=== PATIENT | female | born 1985 | race Two or more races ===

== ENCOUNTER 2025-03-26 14:00 | Inpatient (IN) | payer OTHER ==
[~2025-03-26] VITALS: Ht 175.3 cm; Wt 65.8 kg
--- NOTE | 2025-03-26 15:12 | NUR ---
SE RECIBE PTE ALERTA, ORIENTADA X3 Y AMBULANDO. PTE REFIERE A MEDIO ALICIA COMENZAR A SENTIR DEBILIDAD EN [place]. SE REALIZA EKG Y SE PRESENTA A DR. VICTORIA QUIEN INDICA UBICAR EN FT. SE MIDEN S/V Y SE UBICA EN FAST TRACK
--- NOTE | 2025-03-26 17:30 | NUR ---
SE RECIBE PACIENTE REFIERE TENER MALESTAR EN EL AREA DE [place] ES EVALUADA POR QUIEN ORDENA CBC,CMP,D-DIMMER,PT-INR,PTT Y HEAD CT WO CONTRAST.SE REALIZA MUESTRAS Y ESTUDIOS.SE OBSERVA PACIENTE POR CAMBIOS.
[2025-03-26 17:46] LABS: EOS # 0.33 (0.04-0.54); EOS % 5.3 % (0.7-7.0); HEMATOCRIT 37.4 % (34.1-44.9); HEMOGLOBIN 12.6 g/dL (11.2-15.7); LYMPH # 2.08 (1.18-3.74); LYMPH % 33.1 % (19.3-53.1); MEAN CORPUSCULAR HEMOGLOBIN 30.9 pg (25.6-32.2); MONO # 0.49 (0.24-0.82); MONO % 7.8 % (4.7-12.5); NEUT # 3.31 (1.56-6.13); NEUT % 52.6 % (34.0-71.1); PLATELET COUNT 306 K/uL (163-369); RED BLOOD COUNT 4.08 M/uL (3.93-5.22); RED CELL DISTRIBUTION WIDTH 12.4 % (11.6-14.4)
[2025-03-26 18:26] LABS: D DIMER < 0.19 MG/L; INR 0.96; PARTIAL THROMBOPLASTIN TIME 26.7 SECONDS (22.0-34.0); PROTHROMBIN TIME 10.5 SECONDS (9.0-11.5)
[2025-03-26 18:32] LABS: ALBUMIN 4.2 gm/dL (3.4-5.0); BILIRUBIN TOTAL 0.31 mg/dL (0.3-1.2); CALCIUM 9.8 mg/dL (8.5-10.1); CREATININE SERUM 0.81 mg/dL (0.55-1.02); GFR 79.13; GLOBULINA 3.3 G/DL (2.4-3.5); POTASSIUM 4.06 mEq/L (3.5-5.1); TOTAL PROTEIN 7.5 gm/dL (6.4-8.2)
[2025-03-26] MEDS ORDERED: 0.9 % SODIUM CHLORIDE 1,000 ML IV STA (19:05)
[2025-03-26] MEDS ORDERED: 0.9 % SODIUM CHLORIDE 1,000 ML IV SCH (20:00)
[2025-03-26] MEDS ORDERED: ASPIRIN 81 MG TAB.CHEW PO SCH (20:08)
[2025-03-26] MEDS ORDERED: ATORVASTATIN CALCIUM 40 MG TABLET PO SCH (20:08)
[2025-03-26] MEDS ORDERED: ENALAPRILAT DIHYDRATE 1.25 MG/ML VIAL IV PRN (20:15)
[2025-03-26] MEDS ORDERED: ACETAMINOPHEN 500 MG GEL..CAP PO PRN (20:15)
[2025-03-26 22:17] LABS: COVID-19 AG NEGATIVE (NEGATIVE)
[2025-03-27 03:00] VITALS: BP 112/65; O2SAT 100
[2025-03-27 04:26] VITALS: BP 112/65; O2SAT 98
[2025-03-27 06:08] LABS: CHOL HDL RATIO 2.3 (0-5.0)
[2025-03-27 06:22] LABS: TSH 6.27 uIU/mL (0.358-3.74)
[2025-03-27 08:12] LABS: PH,URINE 5.5 (5.0-8.0); URINE APPEARANCE Clear; URINE BILIRRUBIN Negative (NEGATIVE); URINE BLOOD Negative; URINE COLOR Yellow; URINE GLUCOSE Negative (NEGATIVE); URINE KETONE Negative (NEGATIVE); URINE LEUKOCYTE Negative; URINE NITRATE Negative; URINE PROTEIN Negative (NEGATIVE); URINE UROBILINOGEN 0.2 E.U./dl
[2025-03-27 08:15] LABS: URINE BACTERIA 621.7 uL (0.0-1933); URINE CAST 1.62 uL (0.0-1.40); URINE EPITHELIAL CELLS 21.5 uL (0.0-38.8); URINE RBC 4.1 uL (0.0-20.8); URINE WBC 19.4 uL (0.0-23.2)
[2025-03-27 08:23] VITALS: BP 130/80; O2SAT 100
[2025-03-27] MEDS ORDERED: FAMOTIDINE/PF 20 MG in 0.9 % SODIUM CHLORIDE 8 ML IV PUSH SCH (09:00)
[2025-03-27 12:18] VITALS: O2SAT 100
[2025-03-27 17:18] VITALS: BP 141/81; O2SAT 99
[2025-03-27 20:03] VITALS: O2SAT 90
[2025-03-28 01:07] VITALS: BP 125/68; O2SAT 100
[2025-03-28 08:27] VITALS: BP 134/82; O2SAT 98
[2025-03-28 10:33] VITALS: O2SAT 98
== END 2025-03-28 12:34 | disposition home or self-care (01) | DRG 69 ==
LOC: ER 14:21 → SEC-K 20:45 → SURH 20:45 → MEDI 03-27 02:27 → SEC-K 03-27 04:03 → SURH 03-27 04:05
PROVIDERS: General Practice; ADMIT Internal Medicine; ATTEND Internal Medicine
PROC: BW28ZZZ Computerized Tomography (CT Scan) of Head (ICD-10-PCS; principal; 2025-03-26)
PROC: B030ZZZ Magnetic Resonance Imaging (MRI) of Brain (ICD-10-PCS; 2025-03-26)
PROC: B345ZZZ Ultrasonography of Bilateral Common Carotid Arteries (ICD-10-PCS; 2025-03-26)
PROC: B246ZZZ Ultrasonography of Right and Left Heart (ICD-10-PCS; 2025-03-26)
PROC: 4A12X4Z Monitoring of Cardiac Electrical Activity, External Approach (ICD-10-PCS; 2025-03-27)
DX: G45.9 Transient cerebral ischemic attack, unspecified (principal); H02.402 Unspecified ptosis of left eyelid; I10 Essential (primary) hypertension
CPT/HCPCS: 70544